=== PATIENT | male | born 1970 | race Caucasian/White ===

== ENCOUNTER 2016-10-14 21:52 | Emergency (ER) | payer OTHER ==
[~2016-10-14] VITALS: Ht 182.9 cm; Wt 158.8 kg
[~2016-10-14 21:52] MED LIST: FLOMAX(MONOGRA0.4 MG PO; PERCOCET 325 MG1 TA2 PO; ZOFRAN4 M1 PO
--- NOTE | 2016-10-14 22:05 | ED GI/GU/ABDOMINAL COMPLAINT ---
History of Present Illness General Chief Complaint: Abdominal Pain/Flank Pain Stated Complaint: KIDNEY STONE PAIN Source: patient, old records Exam Limitations: no limitations Vital Signs & Intake/Output Vital Signs & Intake/Output Vital Signs Date Time Temp Pulse Resp B/P Pulse O2 O2 Flow FiO2 Ox Delivery Rate 10/14 2327 99.4 78 18 136/80 93 Room Air 10/14 2154 97.7 88 20 171/88 98 Room Air ED Intake and Output 10/15 0000 10/14 1200 Intake Total Output Total Balance Patient 350 lb Weight Allergies Coded Allergies: NO KNOWN ALLERGIES (02/11/12) Reconcile Medications Ondansetron (Zofran Odt) 4 MG ODT 1 TAB PO Q4-6 PRN NAUSEA Oxycodone HCl/Acetaminophen (Percocet 5-325 MG Tablet) 5 MG-325 MG TABLET 1 TAB PO Q6P PRN pain OXYCODONE HCL/ACETAMINOPHEN (Percocet 5-325 MG Tablet) 325 MG/5 MG TAB 1 TAB PO Q4-6 PRN PRN BREAKTHROUGH PAIN Tamsulosin HCl (Flomax) 0.4 MG CAP.ER.24H 1 CAP PO DAILY KIDNEY STONE Tamsulosin Hydrochloride (Flomax) 0.4 MG CAP 1 CAP PO DAILY KIDNEY STONE Triage Note: PT TO ED C/O RT ABD PAIN AND RT FLANK PAIN FOR 4 DAYS. PMH OF KIDNEY STONES, FEELS THE SAME. POS N/V TODAY. LAST VOMIT THIS AM. DENIES NAUSEA CURRENTLY "I HAVEN'T EATEN ANYTHING SINCE FRIDAY" "I CAN'T SLEEP" "I'M TOTALLY BACKED UP" NO BM FOR 4 DAYS. DENIES UTI S/S Triage Nurses Notes Reviewed? yes HPI: Patient is a 46 year old male presents complaining of right flank pain. Pain x 3-4 days, worsening. Pain is a sharp pain currently 10/10. Patient was taking percocet left over from a previous kidney stone, with minimal improvement. Last dose was 2 days ago. Last BM 2-3 days ago. Positive nausea and vomiting. Positive hematuria 2 days ago. Denies fevers, dysuria, urgency, frequency. (GALA PARSONS,MAINOR) Past History Travel History Traveled to [place] past 21 day No Medical History Any Pertinent Medical History? see below for history Renal: nephrolithiasis Surgical History Surgical History: hip replacement Psychosocial History What is your primary language British Tobacco Use: Never used ETOH Use: occasional use Illicit Drug Use: denies illicit drug use (MAINOR RICHARDS) Family History Hx Contributory? No (JUSTINE JUNG,ANATOLY [place]) Review of Systems Review of Systems Constitutional: Denies: chills, fever. EENTM: Reports: no symptoms. Respiratory: Denies: cough, short of breath. Cardiovascular: Denies: chest pain. GI: Reports: see HPI. Genitourinary: Reports: see HPI. Musculoskeletal: Reports: back pain (right flank pain). Skin: Reports: no symptoms. Neurological/Psychological: Reports: no symptoms. Hematologic/Endocrine: Reports: no symptoms. Immunologic/Allergic: Reports: no symptoms. (MAINOR RICHARDS) Physical Exam Physical Exam General Appearance: well developed/nourished, alert, awake, obese Head: atraumatic, normal appearance Eyes: Bilateral: normal appearance. Ears, Nose, Throat, Mouth: hearing grossly normal, moist mucous membrane Neck: normal inspection, supple, full range of motion Respiratory: normal breath sounds, chest non-tender, no respiratory distress, lungs clear Cardiovascular: regular rate/rhythm Gastrointestinal: normal bowel sounds, soft, mild right midabdominal tenderness. Negative Bell sign, negative McBurney's point tenderness. Back: normal inspection, normal range of motion, no vertebral tenderness, no cva tenderness Extremities: normal range of motion Neurologic/Psych: no motor/sensory deficits, awake, alert, oriented x 3, normal gait, normal mood/affect Skin: intact, normal color, warm/dry (MAINOR RICHARDS) Core Measures ACS in differential dx? No Severe Sepsis Present: No Septic Shock Present: No (JUSTINE JUNG,ANATOLY [place]) Progress Plan of Care: Orders Procedure Date/time Status COMPREHENSIVE METABOLIC PANEL 10/14 2209 Complete CBC WITHOUT DIFFERENTIAL 10/14 2209 Complete URINALYSIS 10/14 2158 Complete Laboratory Tests 10/14/162223: Anion Gap 11, Estimated GFR 43 L, BUN/Creatinine Ratio 10.6, Glucose 175 H, Calcium 9.2, Total Bilirubin 1.0, AST 18, ALT 33, Alkaline Phosphatase 92, Total Protein 7.4, Albumin 4.1, Globulin 3.3, Albumin/Globulin Ratio 1.2, CBC w Diff NO MAN DIFF REQ, RBC 5.14, MCV 84.0, MCH 28.6, RDW 12.9, MPV 7.3 L, Gran % 72.4 , Lymphocytes % 17.6 L, Monocytes % 9.0, Eosinophils % 0.9, Basophils % 0.1, Absolute Granulocytes 8.7 H, Absolute Lymphocytes 2.1, Absolute Monocytes 1.1 H, Absolute Eosinophils 0.1, Absolute Basophils 0, PUBS MCHC 34.1 10/14/167: Urine Color YEL, Urine Clarity HAZY H, Urine pH 6.0, Ur Specific [place] 1.025, Urine Protein 100 H, Urine Ketones NEG, Urine Nitrite NEG, Urine Bilirubin NEG, Urine Urobilinogen 0.2, Ur Leukocyte Esterase NEG, Ur Microscopic SEDIMENT EXAMINED, Urine RBC >75 H, Urine WBC 5-10 H, Ur Epithelial Cells RARE, Urine Mucus FEW, Urine Hemoglobin LARGE H, Urine Glucose NEG 10/14/16 2245: Patient's pain well controlled after toradol and morphine. Results of CT scan discussed with patient. Awaiting chemistries and will discuss with urology. (GALA PARSONS,MAINOR) Diagnostic Imaging: Viewed by Me: CT Scan. Discussed w/RAD: CT Scan. Radiology Impression: PATIENT: MILVIA MIDDLETON PRESENT AGE: 46 PATIENT ACCOUNT NO: [id number] : 68 LOCATION: [facility] ORDERING PHYSICIAN: MAINOR PARSONS SERVICE DATE: 10/14/16 EXAM TYPE: CAT - CT ABD & PELVIS W/O IV CONTRAS EXAMINATION: CT ABDOMEN AND PELVIS WITHOUT CONTRAST CLINICAL INFORMATION: Right flank pain. COMPARISON: CT abdomen and pelvis 08/23/2014. TECHNIQUE: Multidetector volumetric imaging was performed from the superior aspect of the liver through the pubic symphysis. Sagittal and coronal reformatted images were obtained on the technologist's workstation. DLP: 1670 mGy-cm FINDINGS: Limited evaluation of the solid abdominal viscera in the absence of intravenous contrast. LUNG BASES: The visualized lung bases are unremarkable. LIVER, GALLBLADDER, AND BILIARY TREE: There is diffuse low- attenuation of the liver parenchyma, indicative of fatty infiltration of the liver. The liver is otherwise normal in size, shape and contour. No biliary ductal dilatation is identified. There is a punctate gallstone layering dependently within the gallbladder lumen, without secondary signs of acute cholecystitis. PANCREAS: Unremarkable. SPLEEN: Unremarkable. ADRENAL GLANDS: Unremarkable. KIDNEYS AND URETERS: Evaluation of the bilateral kidneys and renal collecting systems is notable for obstructive uropathy of the right kidney secondary to 2 adjacent stones within the proximal right ureter, approximately 2 cm from the right ureteral pelvic junction. The more superior calculus measures approximately 0.9 cm in craniocaudal dimension (series 602, image 71). The more caudal calculus measures approximately 0.8 cm in craniocaudal dimension. There is associated mild upstream hydroureteronephrosis of the right kidney and proximal right ureter. Evaluation of the left kidney is notable for nephrolithiasis of the left kidney. Notably, 0.2-0.3 cm punctate nonobstructing stones are present within the upper and lower poles of the left kidney. There is a 0.7 cm nonobstructing stone within the upper pole of the left kidney. No left- sided ureteral stones are identified and there is no hydroureteronephrosis of the left kidney or left renal collecting system. BLADDER: Unremarkable. GASTROINTESTINAL TRACT: Normal anatomic orientation of the stomach relative to the duodenum. Normal caliber of abdominal and pelvic bowel loops, without evidence of obstruction or ileus. No circumferential bowel wall thickening with surrounding inflammatory changes to suggest an underlying infectious or inflammatory enterocolitis. Normal-appearing appendix within the right lower quadrant of the abdomen. A small appendicolith is present within the appendiceal lumen. Scattered colonic diverticulosis, notably involving the descending colon, without secondary signs of acute diverticulitis. No organizing intra-abdominal fluid collections or free intraperitoneal air. ABDOMINAL WALL: No significant hernia is appreciated. LYMPH NODES: No significant abdominal or pelvic adenopathy. VASCULAR: Normal course and caliber of the abdominal aorta and its branching vessels, without aneurysmal dilatation. Limited evaluation for vascular patency in the absence of intravenous contrast. PELVIC VISCERA: Unremarkable. OSSEOUS STRUCTURES: No acute osseous abnormality. IMPRESSION: 1. Obstructive uropathy of the right kidney secondary to two adjacent stones within the proximal right ureter, approximately 2 cm from the right ureteropelvic junction. The more superior calculus measures approximately 0.9 cm in craniocaudal dimension. The more caudal calculus measures approximately 0.8 cm in craniocaudal dimension. There is associated mild upstream hydroureteronephrosis of the right kidney and proximal right ureter. 2. Nephrolithiasis of the left kidney, as noted above. 3. Fatty infiltration of the liver. DICTATED BY: JOHAN BARKER MD DATE/TIME DICTATED:10/14/162223 FULL SERVICE SUPERVISOR:SINAI DATE/TIME TRANSCRIBED:10/14/162223 CONFIDENTIAL, DO NOT COPY WITHOUT APPROPRIATE AUTHORIZATION. <Electronically signed in Other Vendor System> SIGNED BY: JOHAN BARKER MD 10/14/162236 Initial ED EKG: none Hand-Off Endorsed To: ANATOLY BAINS MD Endorsed Time: 2299 Pending: consult (urology) (MAINOR RICHARDS) Differential Diagnosis: UTI/pyelo, RENAL COLIC Comments: 10/14/2016 11:10:12 PM signed out to me by JAQUELINE. 10/15/2016 12:25:24 AM patient's case discussed with Dr. Del Castillo. (ANATOLY BAINS MD) Departure Departure Condition: Stable Referrals: IZAIAH JUNG,VINCENT Gaviria (PCP/Family) Departure Forms: Customer Survey General Discharge Information (MAINOR RICHARDS) Departure Disposition: HOME OR SELF CARE Clinical Impression Primary Impression: Renal colic on right side Additional Instructions: Follow-up with Dr. Del Castillo or your own urologist this week for reevaluation. Ibuprofen 600 mg every 6 hours as needed for pain. Add Percocet 1-2 tablets every 6 hours as needed for pain. Flomax as prescribed to help move the kidney stone. Notify your primary care doctor of this emergency department visit and treatment plan. Return if any concerns or sudden worsening. Please note that there might be incidental findings in your evaluation that are unrelated to the current emergency department visit. Please notify your primary care doctor about this emergency department visit in order to obtain and review all of the testing performed so that these incidental findings can be monitored as needed. If you had an x-ray performed, please understand that some fractures may not be seen on the initial set of x-rays. If your symptoms persist you might need a repeat set of x-rays to check for such a fracture. If you had a laceration evaluated, please understand that foreign bodies such as glass or wood may not be visible to the naked eye or on plain x-rays. If the wound becomes red, swollen, increasingly more painful or if there is any drainage from the wound, please have it reevaluated by a physician for the possibility of a retained foreign body. Thank you for choosing the [facility] Emergency Department for your care. It was a pleasure to serve you today. Anatoly Bains M.D. [facility] Prescriptions: Current Visit Scripts Oxycodone HCl/Acetaminophen (Percocet 5-325 MG Tablet) 1 TAB PO Q6P PRN pain #20 TAB Tamsulosin HCl (Flomax) 1 CAP PO DAILY #10 CAP (JUSTINE JUNG,ANATOLY [place]) Critical Care Note Critical Care Note Critical Care Time: 30-74 min (JUSTINE JUNG,ANATOLY [place])
[2016-10-14 22:31] LABS: ABSOLUTE BASOPHIL COUNT 0 /CUMM (0.0-0.2); ABSOLUTE EOSINOPHIL COUNT 0.1 /CUMM (0.0-0.7); ABSOLUTE GRANULOCYTE CT 8.7 /CUMM (1.4-6.5); ABSOLUTE LYMPH COUNT 2.1 /CUMM (1.2-3.4); ABSOLUTE MONOCYTE COUNT 1.1 /CUMM (0.10-0.60); BASOPHIL % 0.1 % (0.0-2.0); EOSINOPHIL % 0.9 % (0-5); GRANULOCYTE % 72.4 % (42.2-75.2); HEMATOCRIT 43.2 % (42-52); MEAN CORPUSCULAR HGB 28.6 PG (27.0-31.0); MEAN CORPUSCULAR HGB CONC 34.1 G/DL (33.0-37.0); MEAN PLATELET VOLUME 7.3 FL (7.4-10.4); PLATELET COUNT 265 /CUMM (130-400); RBC DISTRIBUTION WIDTH 12.9 % (11.5-14.5); RED BLOOD CELL CT 5.14 /CUMM (4.70-6.10); WHITE BLOOD CELL COUNT 12.1 /CUMM (4.8-10.8)
--- NOTE | 2016-10-14 22:37 | CT SCAN REPORT ---
EXAMINATION: CT ABDOMEN AND PELVIS WITHOUT CONTRAST CLINICAL INFORMATION: Right flank pain. COMPARISON: CT abdomen and pelvis 08/23/2014. TECHNIQUE: Multidetector volumetric imaging was performed from the superior aspect of the liver through the pubic symphysis. Sagittal and coronal reformatted images were obtained on the technologist's workstation. DLP: 1670 mGy-cm FINDINGS: Limited evaluation of the solid abdominal viscera in the absence of intravenous contrast. LUNG BASES: The visualized lung bases are unremarkable. LIVER, GALLBLADDER, AND BILIARY TREE: There is diffuse low-attenuation of the liver parenchyma, indicative of fatty infiltration of the liver. The liver is otherwise normal in size, shape and contour. No biliary ductal dilatation is identified. There is a punctate gallstone layering dependently within the gallbladder lumen, without secondary signs of acute cholecystitis. PANCREAS: Unremarkable. SPLEEN: Unremarkable. ADRENAL GLANDS: Unremarkable. KIDNEYS AND URETERS: Evaluation of the bilateral kidneys and renal collecting systems is notable for obstructive uropathy of the right kidney secondary to 2 adjacent stones within the proximal right ureter, approximately 2 cm from the right ureteral pelvic junction. The more superior calculus measures approximately 0.9 cm in craniocaudal dimension (series 602, image 71). The more caudal calculus measures approximately 0.8 cm in craniocaudal dimension. There is associated mild upstream hydroureteronephrosis of the right kidney and proximal right ureter. Evaluation of the left kidney is notable for nephrolithiasis of the left kidney. Notably, 0.2-0.3 cm punctate nonobstructing stones are present within the upper and lower poles of the left kidney. There is a 0.7 cm nonobstructing stone within the upper pole of the left kidney. No left-sided ureteral stones are identified and there is no hydroureteronephrosis of the left kidney or left renal collecting system. BLADDER: Unremarkable. GASTROINTESTINAL TRACT: Normal anatomic orientation of the stomach relative to the duodenum. Normal caliber of abdominal and pelvic bowel loops, without evidence of obstruction or ileus. No circumferential bowel wall thickening with surrounding inflammatory changes to suggest an underlying infectious or inflammatory enterocolitis. Normal-appearing appendix within the right lower quadrant of the abdomen. A small appendicolith is present within the appendiceal lumen. Scattered colonic diverticulosis, notably involving the descending colon, without secondary signs of acute diverticulitis. No organizing intra-abdominal fluid collections or free intraperitoneal air. ABDOMINAL WALL: No significant hernia is appreciated. LYMPH NODES: No significant abdominal or pelvic adenopathy. VASCULAR: Normal course and caliber of the abdominal aorta and its branching vessels, without aneurysmal dilatation. Limited evaluation for vascular patency in the absence of intravenous contrast. PELVIC VISCERA: Unremarkable. OSSEOUS STRUCTURES: No acute osseous abnormality. IMPRESSION: 1. Obstructive uropathy of the right kidney secondary to two adjacent stones within the proximal right ureter, approximately 2 cm from the right ureteropelvic junction. The more superior calculus measures approximately 0.9 cm in craniocaudal dimension. The more caudal calculus measures approximately 0.8 cm in craniocaudal dimension. There is associated mild upstream hydroureteronephrosis of the right kidney and proximal right ureter. 2. Nephrolithiasis of the left kidney, as noted above. 3. Fatty infiltration of the liver.
[2016-10-15] MEDS ORDERED: FLOMAX0.4 M1 PO (00:35)
[2016-10-15] MEDS ORDERED: PERCOCET 5-3251 EACH PO (00:35)
[2016-10-15 00:49] VITALS: BP 138/80
== END 2016-10-15 00:51 ==
LOC: ERH 21:52
PROVIDERS: Physician Assistant
DX: N23 Unspecified renal colic (principal)
CPT/HCPCS: 74176; 81001; 96374; 96375; J1885

== ENCOUNTER → 2016-10-22 | Day surgery (SDC) | payer OTHER ==
[~2016-10-22] VITALS: Ht 182.9 cm; Wt 158.8 kg
[~2016-10-22] MED LIST changes: +FLOMAX0.4 M1 PO; +PERCOCET 5-3251 EACH PO
--- NOTE | 2016-10-22 11:47 | Operative Report ---
Operative/Inv Procedure Report Surgery Date: 10/22/16 Name of Procedure: rigth ureter eswl:fluoroscopy Pre-Operative Diagnosis: rigth ureter stones with mild hydro. Post-Operative Diagnosis: same Estimated Blood Loss: none Surgeon/Motor Home Electrical Foreman: JARET WHITE MD Anesthesia: laryngeal mask airway Complications: none Operative/Procedure Note Note: The patient was taken to the operating room and placed on the ESWL table in supine position. With the patient awake, timeout was performed to cofirm correct identity, procedure, laterality, anesth., and other pertinent debbie- operative information. The patient's RIGHT flank was placed over the table cut -out, overlying the dome of the shockwave generator. C-arm fluroscopy, as well as renal US, was used to locate the stone, and evaluate the RIGHT kidney. The stone was clearly visible on fluoroscopy at the distal right ureter, measuring approximately 12 mm stone burden. Renal US confimred mild hydronephrosis, and no other stone, no tumor, seen in the right kidney. After adequate anesthesia, the postition of the right ureter stone was optimized for Shockwave lithotrypsy using fluoroscopy in AP and oblique views. The E.S.W.L. was initiated at low power levels x 200 shocks. After noting the patient's tolerance to the shockwaves, the shock wave power level was quickly maximized. Toward the end of the procedure, the composition of the stone had changed significantly indicating the pulverization of the ureter stone. A total of 3000 shockwaves were delivered to the stone in order to achieve adequate lithotrypsy. The patient tolerated both the procedure well, was awakened, and taken to recovery in satisfactory condition via stretcher. The pt will be dischared home with pain meds, diet orders, and intructions to catch fragments with straining the urine. The patient is to have follow-up renal ultrasound and KUB in 1-2 weeks, prior to follow-up visit in my office. Discharge Disposition: PACU Additional Comments: f/u for left ESWL in near future CC: JARET WHITE MD
== END ==
LOC: STS 03:12
DX: N13.2 Hydronephrosis with renal and ureteral calculous obstruction (principal)
CPT/HCPCS: J2250

== ENCOUNTER → 2016-10-29 | Day surgery (SDC) | payer OTHER ==
[~2016-10-29] VITALS: Ht 182.9 cm; Wt 158.8 kg
--- NOTE | 2016-10-29 13:37 | RADIOLOGY REPORT ---
EXAMINATION: XR KIDNEYS, URETER, BLADDER CLINICAL INDICATION: Rule out stone in the bladder. COMPARISON: CT dated 10/14/2016 TECHNIQUE: AP supine views of the abdomen FINDINGS: There is a 5 mm calculus overlying the lower pole of the left kidney. No additional radiodense renal, ureteral, or bladder calculi. Nondilated bowel gas pattern. Mild degenerative spondylosis is present in the lumbar spine. 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 Right total prosthesis is appropriately positioned. IMPRESSION: 1. A 5 mm calculus in the lower pole the left kidney. 2. No additional radiodense renal, ureteral, or bladder calcifications.
--- NOTE | 2016-10-29 14:53 | Operative Report ---
Operative/Inv Procedure Report Surgery Date: 10/29/16 Name of Procedure: LEFT renal eswl. fluoroscopy Pre-Operative Diagnosis: left renal stone Post-Operative Diagnosis: same Estimated Blood Loss: none Surgeon/Loan Operations Specialist: JARET WHITE MD Anesthesia: laryngeal mask airway Complications: none Operative/Procedure Note Note: The patient was taken to the operating room and placed on the ESWL table in supine position. With the patient awake and participating, timeout was performed to confirm correct identity, procedure, laterality, anesthesia, and other pertinent debbie-operative information. After adequate anesthesia, the patient was positioned so that the patient's left flank was positioned over the table cut-out, overlying the dome of the treatment head. Once the patient was adequately sedated, fluoroscopy, as well as Renal ultrasound was used to locate the LEFT renal stone. Renal US confirmed the presence of the stone which measured it to be approximately 8 mm renal pelvis stone. The stone was fairly visible with fluoroscopy. Renal US revealed, no hydronephrosis, and no solid tumor, and presence of the stone. The position of the stone was optimized by using fluoroscopy in AP and oblique views;placing the stone within the ESWL c- arm crosshairs. Once the stone's position was optimized, the LEFT renal E.S.W.L. was initiated at low energy level. After noting the patient's tolerance to the shockwaves, the intensitiy was ramped up to maximum level. At the end of the procedure, the left renal stone had dissintegrated. Of note, a total of 2500 shockwaves were delivered to the stone. The patient tolerated the ESWL procedures well, was awakened, then taken to recovery in satisfactory condition via stretcher. The patient was dischared home with pain medications, diet orders, and intructions to catch fragments by straining the urine. The patient to to have follow-up renal ultrasound and KUB in 1 to 2 weeks, prior to follow-up visit in my office. He will then proceed with metabolic stone work-up. Findings: 8mm left renal pelvis stone shattered at 2500 Discharge Disposition: PACU CC: JARET WHITE MD
== END ==
LOC: STS 03:38
DX: N20.0 Calculus of kidney (principal); E66.9 Obesity, unspecified; Z68.43 Body mass index [BMI] 50.0-59.9, adult
CPT/HCPCS: 74000; J2250